=== PATIENT | male | born 1945 | race Caucasian/White ===

== ENCOUNTER 2018-02-20 16:37 | Inpatient (IN) | payer OTHER ==
[~2018-02-20] VITALS: Ht 170.2 cm; Wt 69.7 kg
[2018-02-20 17:13] LABS: ABSOLUTE BASOPHIL COUNT 0.1 /CUMM (0.0-0.2); ABSOLUTE EOSINOPHIL COUNT 0.1 /CUMM (0.0-0.7); ABSOLUTE GRANULOCYTE CT 11.2 /CUMM (1.4-6.5); ABSOLUTE LYMPH COUNT 0.8 /CUMM (1.2-3.4); ABSOLUTE MONOCYTE COUNT 0.7 /CUMM (0.10-0.60); BASOPHIL % 0.5 % (0.0-2.0); EOSINOPHIL % 0.5 % (0-5); GRANULOCYTE % 87.4 % (42.2-75.2); MEAN CORPUSCULAR HGB 27.2 PG (27.0-31.0); MEAN CORPUSCULAR HGB CONC 32.4 G/DL (33.0-37.0); MEAN PLATELET VOLUME 7.2 FL (7.4-10.4); PLATELET COUNT 318 /CUMM (130-400); RBC DISTRIBUTION WIDTH 17.2 % (11.5-14.5); RED BLOOD CELL CT 2.13 /CUMM (4.70-6.10); WHITE BLOOD CELL COUNT 12.8 /CUMM (4.8-10.8)
[2018-02-20 17:18] LABS: HEMATOCRIT 17.9 % (42-52)
--- NOTE | 2018-02-20 17:23 | ED GENERAL ADULT ---
History of Present Illness General Chief Complaint: Shoulder Injury Stated Complaint: PAIN IN LEFT SHOULDER Source: patient Exam Limitations: no limitations Allergies Coded Allergies: No Known Allergies (02/20/18) Reconcile Medications No Known Home Medications Triage Note: 72M REPORTS HE WAS HELPING A FRIEND OUT HEAVY LIFTING A FEW WEEKS AGO. HAS HAD INTERMITTENT WORSENING PAIN TO L SHOULDER, CLAVICAL AND RIB CAGE AREA. PAIN WORSE WITH MOVEMENT. MULTIPLE COMPLAINTS REGARDING DECREASING ACTIVITY LEVEL DUE TO PAIN ALL OVER CHRONIC. INTERMITTENT NAUSEA/POOR APPETITE AND DYSPHAGIA. MANAGING SECRETIONS. UNSURE IF BITTEN BY INSECT OR TICK. AFEBRILE. Triage Nurses Notes Reviewed? yes Onset: Gradual Duration: day(s): Timing: constant HPI: 72-year-old male with no known past medical history currently visiting from [place] presenting with 1 month of intermittent left shoulder pain that began after he was helping his friend take apart a deck. Pain is worse with movement. Has been using NSAIDs with good relief. Denies numbness or paresthesias. No chest pain or shortness of breath. (Verito Wright) Vital Signs & Intake/Output Vital Signs & Intake/Output Vital Signs Date Time Temp Pulse Resp B/P B/P Pulse O2 O2 Flow FiO2 Mean Ox Delivery Rate 02/20 2200 96.9 95 18 154/91 99 Room Air 02/20 2115 96.8 91 18 160/72 97 Room Air 02/20 2100 96.9 95 18 155/80 99 Room Air 02/20 2015 96.8 96 18 160/84 99 Room Air 02/20 2000 97.0 99 18 158/85 99 Room Air 02/20 1826 90 18 141/70 100 Room Air 02/20 1644 98.2 113 16 155/81 99 Room Air (Felix King DO) Past History Travel History Traveled to [place] past 21 day No Medical History Any Pertinent Medical History? none Neurological: NONE EENT: NONE Cardiovascular: NONE Respiratory: NONE Gastrointestinal: NONE Hepatic: NONE Renal: NONE Musculoskeletal: NONE Psychiatric: NONE Endocrine: NONE Surgical History Surgical History: non-contributory Psychosocial History What is your primary language British Tobacco Use: Never used Family History Hx Contributory? No (Verito Wright) Review of Systems Review of Systems Constitutional: Reports: no symptoms. EENTM: Reports: no symptoms. Respiratory: Reports: no symptoms. Cardiovascular: Reports: no symptoms. GI: Reports: no symptoms. Genitourinary: Reports: no symptoms. Musculoskeletal: Reports: see HPI. Skin: Reports: no symptoms. Neurological/Psychological: Reports: no symptoms. Hematologic/Endocrine: Reports: no symptoms. Immunologic/Allergic: Reports: no symptoms. (Verito Wright) Physical Exam Physical Exam General Appearance: well developed/nourished, no apparent distress, alert, awake , comfortable Head: atraumatic, normal appearance Eyes: Bilateral: normal appearance. Neck: normal inspection, full range of motion, no midline tenderness Respiratory: normal breath sounds, chest non-tender, lungs clear Cardiovascular: regular rate/rhythm Gastrointestinal: soft, non-tender, hepatomegaly Back: normal inspection, normal range of motion, no vertebral tenderness Extremities: normal inspection, normal range of motion, No focal tenderness to palpation of the left shoulder, mild decrease in range of motion at the left shoulder, left upper extremity is neurovascularly intact. Neurologic/Psych: awake, alert, oriented x 3, normal gait, normal mood/affect Skin: intact, normal color, warm/dry Core Measures ACS in differential dx? No CVA/TIA Diagnosis: No Sepsis Present: No Sepsis Focused Exam Completed? No (Verito Wright) Progress Differential Diagnoses I considered the following diagnoses in my evaluation of the patient: [MSK strain versus osteoarthritis versus fracture versus dislocation versus rotator cuff injury] Initial ED EKG: rhythm (sinus), rate (tachy to 102), no ST T wave changes (Verito Wright) Plan of Care: Orders Procedure Date/time Status Nothing by Mouth 02/21 B Active Heart Healthy Diet 02/20 D Complete Saline Lock 02/20 2226 Active Misc Message 02/20 2226 Active ED Holding Orders 02/20 2226 Active Admit to inpatient 02/20 222 Active Vital Signs 02/20 2226 Active Code Status 02/20 2226 Active BLOOD PRODUCT PICKUP 02/20 2055 Active BLOOD PRODUCT PICKUP 02/20 1951 Active LEUKOCYTE POOR (PACKED CELLS) 02/20 192 Active PARTIAL THROMBOPLASTIN TIME 02/20 1722 Complete PROTHROMBIN TIME 02/20 1722 Complete TYPE & SCREEN (NOT X-MATCH) 02/20 1722 Complete TROPONIN LEVEL 02/20 164 Complete WESTERGREN SED RATE 02/20 1647 Complete COMPREHENSIVE METABOLIC PANEL 02/20 164 Complete CBC WITHOUT DIFFERENTIAL 02/20 1647 Complete EKG 02/20 1647 Active Intake & Output 02/20 1646 Active Patient Data 02/20 1644 Active Current Medications Sig/Kayleen Start time Last Medication Dose Stop Time Status Admin Heparin Sodium 25,000 UNIT Q24H 02/20 2145 AC 02/20 (Porcine) 2214 (Heparin) Sodium Chloride 500 ML Laboratory Tests 02/20/18 2223: APTT Cancelled 02/20/18 1735: PT 13.5 H, INR 1.24 H, APTT 26 02/20/18 1700: Anion Gap 6, Estimated GFR 55 L, BUN/Creatinine Ratio 20.8, Glucose 114 H, Calcium 8.5, Total Bilirubin 0.2, AST 66 H, ALT 64, Alkaline Phosphatase 292 H , Troponin I 0.02, Total Protein 6.6, Albumin 3.2 L, Globulin 3.4, Albumin/ Globulin Ratio 0.9 L, CBC w Diff NO MAN DIFF REQ, RBC 2.13 L, MCV 84.0, MCH 27.2, MCHC 32.4 L, RDW 17.2 H, MPV 7.2 L, Gran % 87.4 H, Lymphocytes % 6.5 L, Monocytes % 5.1, Eosinophils % 0.5, Basophils % 0.5, Absolute Granulocytes 11.2 H, Absolute Lymphocytes 0.8 L, Absolute Monocytes 0.7 H, Absolute Eosinophils 0.1, Absolute Basophils 0.1, ESR Westergren 50 H EKG showed sinus tach, no ischemic changes, trop 0.02 Labs remarkable for H&H of 5 and 17, patient denies any sources of bleeding on his review of systems, his stool is brown guaiac-negative, no active signs of bleeding on exam. Patient was given 2 units of packed rbc's, and vital signs are within normal limits. CT abdomen and pelvis was obtained as the patient had a palpable mass in the right upper quadrant and his abdominal exam. CT abdomen and pelvis showed an enlarged liver with lesions suspicious for metastases. Patient's anemia is likely secondary to anemia of chronic disease from an undiagnosed malignancy. CT scan was also concerning for questionable right lower extremity thrombus. Bilateral duplex was obtained and patient has bilateral occlusive thrombus with right side worse than left side. Given the patient has no active bleeding and his anemia is likely secondary to anemia of chronic disease he is safe for heparinization at this time. Discussed with vascular and there is no indication for TPA at this time as the patient's legs are nonedematous, nonerythematous, and patient has no lower extremity pain. Discussed with hospitalist and will admit to telemetry. Discussed with POPPY Licona. (Verito Wright) (Felix King DO) Departure Departure Disposition: STILL A PATIENT Condition: Stable Clinical Impression Primary Impression: Anemia Secondary Impressions: DVT, bilateral lower limbs, Liver metastases Departure Forms: Customer Survey General Discharge Information Prescriptions: Current Visit Scripts No Known Home Medications Admission Note Spoke With: Migdalia Burks MD Documentation of Exam: Documentation of any treatments & extenuating circumstances including Concerns Regarding Discharge (functional status, medication knowledge or non-compliance, living conditions, etc.) that warrant an admission rather than observation: [ Hemodynamic monitoring, serial CBCs, possible additional blood transfusions, IV heparinization, vascular consult, telemetry monitoring, oncology consult] (Verito Wright) PA/EMAIL ENGINEER Co-Sign Statement Statement: ED Attending supervision documentation- [] I saw and evaluated the patient. I have also reviewed all the pertinent lab results and diagnostic results. I agree with the findings and the plan of care as documented in the PA's/EMAIL ENGINEER's documentation. [x] I have reviewed the ED Record and agree with the PA's/EMAIL ENGINEER's documentation. [] Additions or exceptions (if any) to the PAs/EMAIL ENGINEER's note and plan are summarized below: [] (Felix King DO) PA/EMAIL ENGINEER Co-Sign Statement Statement: ED Attending supervision documentation- [x] I saw and evaluated the patient. I have also reviewed all the pertinent lab results and diagnostic results. I agree with the findings and the plan of care as documented in the PA's/EMAIL ENGINEER's documentation. 02/20/18, 22:34... pt resting comfortably, stable for tele. [] I have reviewed the ED Record and agree with the PA's/EMAIL ENGINEER's documentation. [] Additions or exceptions (if any) to the PAs/EMAIL ENGINEER's note and plan are summarized below: [] (Ciara ADAMS,Fede Collins) Critical Care Note Critical Care Note Critical Care Time: 30-74 min (Verito Wright)
--- NOTE | 2018-02-20 17:33 | RADIOLOGY REPORT ---
EXAMINATION: XR SHOULDER, LEFT CLINICAL INFORMATION: Left shoulder pain, chest discomfort at times. COMPARISON: None TECHNIQUE: AP external rotation, Grashey, and scapular Y views of the left shoulder. FINDINGS: There is no fracture or malalignment. The glenohumeral joint is unremarkable. There are mild degenerative changes of the acromioclavicular joint. IMPRESSION: Mild degenerative changes of the acromioclavicular joint.
--- NOTE | 2018-02-20 17:33 | RADIOLOGY REPORT ---
EXAMINATION: XR CHEST CLINICAL INFORMATION: Shoulder pain. Chest discomfort. COMPARISON: None TECHNIQUE: 2 views of the chest were obtained. FINDINGS: Lungs are clear. No pulmonary vascular congestion. There is no pleural effusion. The heart size is normal. The cardiac and mediastinal contours are normal. There are multilevel degenerative changes of dorsal spine. IMPRESSION: Unremarkable examination.
[2018-02-20 17:56] LABS: PT 13.5 SEC (9.4-12.5); PTT 26 SEC (25-37)
--- NOTE | 2018-02-20 19:37 | CT SCAN REPORT ---
EXAMINATION: CT ABDOMEN AND PELVIS WITH CONTRAST CLINICAL INFORMATION: Fullness to right upper quadrant. Presumptive diagnosis: Mass. COMPARISON: None TECHNIQUE: Multidetector volumetric imaging was performed of the abdomen and pelvis following IV administration of 95 mL of Optiray 320 intravenous contrast. Sagittal and coronal reformatted images were obtained on the technologist's workstation. DLP: 295.76 mGy-cm FINDINGS: LUNG BASES: The visualized lung bases are unremarkable. LIVER, GALLBLADDER, AND BILIARY TREE: The liver is enlarged with numerous slightly hypodense lesions throughout the liver suspicious for metastatic disease. The largest of these is in the right lobe measuring approximally 4.7 cm in diameter. There is no biliary duct dilatation. The gallbladder is contracted and otherwise unremarkable. PANCREAS: Unremarkable. SPLEEN: Unremarkable. ADRENAL GLANDS: Unremarkable. KIDNEYS AND URETERS: The kidneys are normal in size, shape, and attenuation. No hydronephrosis, hydroureter, or calculi seen. No perinephric stranding. BLADDER: Unremarkable. GASTROINTESTINAL TRACT: There is a moderate-sized hiatal hernia. There appears to be asymmetric wall thickening in the right side of the herniated stomach and/or the distal esophagus. The colon and appendix are unremarkable. There is a loop of nonobstructed small bowel extending into a right inguinal hernia which also contains some fat. ABDOMINAL WALL: Right inguinal hernia containing a loop of nonobstructed small bowel. There is a small fat-containing umbilical hernia. LYMPH NODES: Normal. VASCULAR: The right common femoral vein is distended with central low attenuation suspicious for deep vein thrombosis. PELVIC VISCERA: Unremarkable. OSSEOUS STRUCTURES: There is a mild right convex lumbar scoliosis and mild multilevel degenerative disc disease. There are mild degenerative changes in both hips. There are no suspicious bone lesions. IMPRESSION: 1. Enlarged liver with numerous lesions suspicious for metastatic disease. 2. Moderate size hiatal hernia with asymmetric wall thickening in the herniated stomach and/or distal esophagus. Neoplasm in this region is not definite but certainly should be considered. 3.Suspected deep vein thrombosis in right common femoral vein. Recommend Doppler ultrasound. 4. Right inguinal hernia containing a loop of nonobstructed small bowel. This Critical Result was discussed with SAUD Lowe on 02/20/2018 at 1846 hours
--- NOTE | 2018-02-20 21:02 | ULTRASOUND REPORT ---
EXAMINATION: US TRIPLEX OF LOWER EXTREMITIES, BILATERAL CLINICAL INFORMATION: Thrombus seen on CT study in the deep veins. COMPARISON: None TECHNIQUE: Color-flow triplex imaging with spectral analysis and compression Doppler were performed on the lower extremities. FINDINGS: Right lower extremity. There is occlusive thrombus from the right common femoral vein to the popliteal.. On the right side the femoral vein is duplicated. One vein is entirely occluded. The other vein though remains patent. Thrombus does extend into the proximal portion of the deep femoral vein. The greater saphenous vein though is open. Left lower extremity: There is thrombus present in the left popliteal vein. This is occlusive thrombus. The proximal veins are open. The calf veins are not well seen on the left. IMPRESSION: 1. Right lower extremity: Occlusive thrombus from the groin through the popliteal vein. 2. Left lower extremity: Occlusive thrombus in the popliteal vein. This critical result was discussed with Verito Don on 02/20/2018, 8:55 PM and it was ascertained that the content and urgency of the report was understood at the time of direct communication.
--- NOTE | 2018-02-20 21:55 | History & Physical ---
Dion ADAMS,[facility] 02/20/18 6221: General Information and HPI MD Statement: I have seen and personally examined MANINDER GRIFFIN and documented this H&P. The patient is a 72 year old M who presented with a patient stated chief complaint of [left shoulder pain]. Source of Information: patient History of Present Illness: 72-year-old male with no significant past history presenting for left shoulder pain found to have possible primary/secondary to liver metastases and bilateral popliteal DVT. The patient states that he has not seen a PCP since his childhood and has not had any significant medical issues. He does not take any medications. States that he used to live in [place] and moved down to [place] in 2014. States that when he moved and changed insurances he had blood work done in EKG which were apparently normal. The patient states that he drove up from [place] in 2 days with a stop in [place]. The patient states that his symptoms started about a month ago when he helped with a deck at a friend's house. The patient states that he started having left shoulder pain afterwards which has been intermittently persistent. The patient states that he does not have any pain when he is not moving the shoulder but states he does have pain when he tries to move. The patient states that it is a deep muscular pain. Around the same time the patient started having dysphagia notably with solid food such as steak. The patient states that he will compensate into small pieces and has been eating ground/pured solids without any issues. He has not had any dysphagia to liquids. The patient also states that he has noticed right upper quadrant abdominal pain when he lies on his right side. He states that he noticed the pain when he was sleeping on his stomach. He states that the pain does not bother him if there is any pressure on it. The patient states that he thought he might have been a rib strain from whipping the deck. Also within this time. The patient started noticing that his legs started to hurt particularly in the area just above his ankles. The patient used to walk 3 miles a day but has not been exercising for the past month but states that he is still active with his daily activities without any issues. The patient has also noticed decreased appetite with this timeframe. He also states he gets intermittent lightheadedness. He denies any nausea, vomiting, diarrhea, constipation, changes in stool, any other trauma, shortness of breath, chest pain, palpitations, changes in urination, numbness, or other weakness. Allergies/Medications Allergies: Coded Allergies: No Known Allergies (02/20/18) Home Med list No Known Home Medications Past History Travel History Traveled to [place] past 21 day No Medical History Neurological: NONE EENT: NONE Cardiovascular: NONE Respiratory: NONE Gastrointestinal: NONE Hepatic: NONE Renal: NONE Musculoskeletal: NONE Psychiatric: NONE Endocrine: NONE Surgical History Surgical History: none Review of Systems Review of Systems Constitutional: Reports: see HPI. Denies: chills, diaphoresis, fever, malaise, weakness. Cardiovascular: Denies: chest pain, edema, palpitations, syncope. Respiratory: Denies: cough, hemoptysis, orthopnea, short of breath. GI: Reports: see HPI. Denies: abdominal pain, constipation, diarrhea, melena, nausea. Genitourinary: Reports: no symptoms. Musculoskeletal: Reports: see HPI, joint pain, muscle pain. Skin: Reports: no symptoms. Neurological/Psychological: Reports: see HPI. Exam & Diagnostic Data Last 24 Hrs of Vital Signs/I&O Vital Signs Date Time Temp Pulse Resp B/P B/P Pulse O2 O2 Flow FiO2 Mean Ox Delivery Rate 02/20 2200 96.9 95 18 154/91 99 Room Air 02/20 2115 96.8 91 18 160/72 97 Room Air 02/20 2100 96.9 95 18 155/80 99 Room Air 02/20 2015 96.8 96 18 160/84 99 Room Air 02/20 2000 97.0 99 18 158/85 99 Room Air 02/20 1826 90 18 141/70 100 Room Air 02/20 1644 98.2 113 16 155/81 99 Room Air Intake & Output 02/21 0800 02/21 0000 02/20 1600 Intake Total Output Total Balance Patient 150 lb Weight Physical Exam General Appearance Alert, Oriented X3, Cooperative, No Acute Distress HEENT Atraumatic, PERRLA, EOMI, no lymphadenopathy Cardiovascular mild tachy Lungs Clear to Auscultation, Normal Air Movement Abdomen Soft, No Tenderness, hepatomegaly Neurological Normal Speech, Cranial Nerves 3-12 NL, Reflexes 2+, limit ROM of L shoulder. distal strength 5/5 of all extremities. Extremities 1+ LE Last 24 Hrs of Labs/Jam: Laboratory Tests 02/20/18 2223: APTT Cancelled 02/20/18 1735: PT 13.5 H, INR 1.24 H, APTT 26 02/20/18 1700: Anion Gap 6, Estimated GFR 55 L, BUN/Creatinine Ratio 20.8, Glucose 114 H, Calcium 8.5, Total Bilirubin 0.2, AST 66 H, ALT 64, Alkaline Phosphatase 292 H , Troponin I 0.02, Xwj-P-Wbwarhurufq Pept 336 H, Total Protein 6.6, Albumin 3.2 L, Globulin 3.4, Albumin/Globulin Ratio 0.9 L, CBC w Diff NO MAN DIFF REQ, RBC 2.13 L, MCV 84.0, MCH 27.2, MCHC 32.4 L, RDW 17.2 H, MPV 7.2 L, Gran % 87.4 H, Lymphocytes % 6.5 L, Monocytes % 5.1, Eosinophils % 0.5, Basophils % 0.5, Absolute Granulocytes 11.2 H, Absolute Lymphocytes 0.8 L, Absolute Monocytes 0.7 H, Absolute Eosinophils 0.1, Absolute Basophils 0.1, ESR Westergren 50 H Assessment/Plan Assessment: A: 72-year-old male with no significant past history presenting for left shoulder pain found to have possible primary/secondary to liver metastases and bilateral popliteal DVT. P: #bilateral DVT most likely 2/2 to coagulopathy from cancer Doppler US : 1. Right lower extremity: Occlusive thrombus from the groin through the popliteal vein. 2. Left lower extremity: Occlusive thrombus in the popliteal vein. -cont heparin drip -consider CTA for possible PE given tachycardia #liver mets with esophogeal as possible primary source ESR, INR, WBC, AST, ALP elevated possible secondary to cancer Radiology unsure where primary source of liver mets is. Possible esophogeal per radiologist. -GI consult for possible endoscopy #anemia of unknow origin. Negative guaiac Never had colonoscopy H/H 5.8/17.9 Transfused 2 units -f/u AM h/h #left shoulder pain L shoulder XRAY - Mild degenerative changes of the acromioclavicular joint. -consider MRI for rotator cuff injury #CKD Cr 1.3 -cont monitoring #DNR DNI #Pureed and thin liquid diet #DVT ppx - heparin drip As Ranked By This Provider Problem List: 1. DVT, bilateral lower limbs 2. Liver metastases 3. Anemia 4. Shoulder pain, left 5. CKD (chronic kidney disease) Core Measures/Misc (05/11) Acute Coronary Syndrome ACS Diagnosis: No Congestive Heart Failure Congestive Heart Failure Diagnosis No Cerebrovascular Accident CVA/TIA Diagnosis: No VTE (View Protocol) VTE Risk Factors Acute Medical Illness No Mechanical VTE Prophylaxis d/t Other (b/l DVT) No VTE Pharm Prophylaxis d/t Other (heparin drip) Sepsis (View protocol) Sepsis Present: No If YES complete Sepsis Event Note If YES complete Sepsis Event Note Quique ADAMS,[facility] 02/21/18 0032: Core Measures/Misc (05/11) Sepsis (View protocol) If YES complete Sepsis Event Note If YES complete Sepsis Event Note Resident Review Statement Resident Statement: examined this patient, discussed with advertising intern, agreed with advertising intern, discussed with nursing Other Findings: Maninder is 72-year-old gentleman with no significant past medical history who presented to ED with chief complaint of left shoulder pain for a month. Patient reported heavy physical work a month ago when he was helping a friend to fix a deck and he started to have left shoulder pain. Pain is on and off, exacerbated by movement, he is tried hot and cold therapy and ibuprofen with no significant improvement. Patient also reported a month history of loose appetite, stopped exercising because of the pain with 6 pounds weight loss that he thinks about it as decreased muscle tone. He also reported a month history of dysphagia to solids, denied any liquid dysphagia or odynophagia, not progressing. Denied any nausea, vomiting, abdominal pain, diarrhea or constipation, change in the caliber of stool blood in stool, hemoptysis or hematemesis. Patient reported accidental finding of abdominal pain when he sleep on his abdomen, denied any abdominal pain otherwise. Patient has no significant past medical history, did not see a PCP in long time, last physical was 2014 for insurance purposes when he moved from [place] to [place]. Patient came from [place] yesterday for a visit, drove on 2 days. Negative family history for cancer. Patient vital signs positive for mild sinus tachycardia and hypertension 155/81, saturating 99% on room air. Physical exam as above Problem list #Acute anemia #Right deep femoral vein thrombosis #Left popliteal vein thrombosis #A symmetric wall thickening of the right side distal esophagus questionable for malignancy #Enlarged liver with no persistent lesion suspicious for metastatic disease #Elevated alkaline phosphatase with normal bilirubin level #Right inguinal hernia #ANGELA #Left shoulder pain with negative x-ray #Hypertension Plan Admit to telemetry floor Vitals every shift Continue heparin IV Guaiac all stool CTA chest to rule out PE in setting of persistent tachycardia and bilateral proximal DVT however because of recent contrast according to CT protocol next contrast study should be within 24 hours Obtain tropes Obtain proBNP Keep n.p.o. after midnight for EGD GI consultation in a.m. Repeat CBC status post 2 units blood transfusion Repeat BEP, LFT in a.m. Out of bed Pain management DVT prophylaxis heparin IV Code DNR/DNI, power of personal injury attorney sister in-Migdalia Karimi 02/21/18 0052: Core Measures/Misc (05/11) Sepsis (View protocol) If YES complete Sepsis Event Note If YES complete Sepsis Event Note Attending MD Review Statement Attending Statement Attending MD Statement: examined this patient, discuss w/resident/PA/LEARNING SUPPORT AIDE, agreed w/resident/PA/LEARNING SUPPORT AIDE, reviewed EMR data (avail), reviewed images, amended to note Attending Assessment/Plan: CC: Left shoulder pain PMH: None Patient drove from [place] approximately 2 days back to spend one month with his brother and [id number], (with one break). Patient had been suffering from left shoulder pain since last 1 month on and off, not responding to heart or cold compresses, [id number] medications. It was getting more painful with movement. Now after the drive he was more uncomfortable so he decided to come in ER. Patient states that he started to notice this left shoulder pain one month back when he was working on a deck repairing for his friend, the pain is more with movement especially when he moves his arm higher than horizontal line. Patient denies any chest pain or chest tightness. After further probing patient mentioned that he used to be very active person, started to be very cautious about his health and in 90s and has been routinely exercising since then. He did not see any physician in long while but since one month he could not do pulling exercises because of the shoulder pain and he has lower extremity swelling so his walking also reduced, he lost weight and considers that because of the muscle wasting because of loss of exercise. He also occasionally feels lightheaded and 1 afternoon and patient was lying on the bed and rolled over he noticed some pain and lump in his right side of the abdomen but he did not do anything about that. He also has been noticing difficulty swallowing since last 1 month, more so for big chunks of food. He has been cutting chopping foot very fine to swallow. Denies any nausea, vomiting, bloody stool, black-colored stool. Vitals: Temperature 98.2, pulse 113, RR 16, blood pressure 155/81, saturating 99 % on room air. On exam: A O 3, cooperative, no acute distress, neck supple, ? JVD elevation, no lymphadenopathy, mucosa moist, no focal neurological deficit, +2 pedal edema, no obvious skin rashes or inflammation CVS: S1-S2, RRR. RS: Clear to auscultate bilaterally. Abdomen: Soft, enlarged liver, 2-3 cm below costal line, no guarding or rigidity, bowel sounds present. Left shoulder movement is restricted about 90 secondary to pain, point tenderness over acromioclavicular joint CXR: Unremarkable examination. Left shoulder x-ray Mild degenerative changes of the acromioclavicular joint. CT abdomen pelvis with IV contrast: 1. Enlarged liver with numerous lesions suspicious for metastatic disease. 2. Moderate size hiatal hernia with asymmetric wall thickening in the herniated stomach and/or distal esophagus. Neoplasm in this region is not definite but certainly should be considered. 3.Suspected deep vein thrombosis in right common femoral vein. Recommend Doppler ultrasound. 4. Right inguinal hernia containing a loop of nonobstructed small bowel. DVT Doppler bilateral lower extremity: 1. Right lower extremity: Occlusive thrombus from the groin through the popliteal vein. 2. Left lower extremity: Occlusive thrombus in the popliteal vein. Assessment and plan 72-year-old male who has not seen a physician in a long time presented in ER for left shoulder pain. He has been noticing that pain since last 1 month, more so with movements, started when he was helping his friend to repair his deck. On examination in ER he was found to have a lump or hepatomegaly so CT abdomen and pelvis was obtained which showed suspicion of an enlarged liver with numerous suspicious metastatic disease, possibility of DVT and thickening of esophageal wall. DVT was confirmed by Doppler which shows occlusive thrombus bilaterally. Vascular surgery was consulted for possible TPA given the extent of thrombus who suggested conservative management. Patient was started on heparin. He has low hemoglobin, 5.8, baseline not known. Probably chronic small blood loss versus anemia of chronic disease. Guaiac was negative. We had extensive discussion with patient regarding plan. He wants to go back to [place] for further treatment. He is agreeable for initial investigations here. His brother stays in [place] and he was visiting his brother for 1 month vacation. He has God- children in [place]. Other than this he does not have any immediate family. Patient is DNR/DNI. He may think of chemotherapy later on according to the chances. Patient is also mildly hypertensive at this point but we would not initiate treatment as this could be stress induced. Patient received 2 units PRBC in ER. + Bilateral occlusive DVT, right femoral through popliteal vein, left popliteal vein + Suspected metastatic lesions in liver + Anemia + Left shoulder pain - Admit to telemetry - Continuous telemetry monitoring - Continue heparin drip - Obtain troponin and proBNP - CTA chest - Vascular consult - Nothing by mouth after midnight - Tavares thickened diet - Gastroenterologic consult in a.m. - Iron studies, ferritin, TIBC, reticulocyte count - 2-D echo in a.m. - Repeat H&H in a.m.
[2018-02-21 00:34] VITALS: BP 156/94
--- NOTE | 2018-02-21 00:54 | Admission Certification ---
Admission Certification Certification Statement - As attending physician, I certify that at the time of - admission, based on clinical presentation, severity of - symptoms, need for further diagnostic testing and - therapeutic interventions, and risk of adverse outcomes - without in-hospital treatment, in my clinical assessment, - this patient requires an acute hospital stay for a minimum - of two nights or longer. I have also considered psychsocial - factors such as support system, advanced age, financial - issues, cognitive issues, and failed out-patient treatments, - past re-admission history, safety of patient, and lack of - compliance as applicable. Specific rationale supporting this admission is: A lateral occlusive DVT, anemia, suspected metastatic cancer
[2018-02-21 05:00] LABS: ABSOLUTE BASOPHIL COUNT 0.1 /CUMM (0.0-0.2); ABSOLUTE EOSINOPHIL COUNT 0.1 /CUMM (0.0-0.7)
[2018-02-21 05:11] LABS: ABSOLUTE GRANULOCYTE CT 9.3 /CUMM (1.4-6.5); ABSOLUTE LYMPH COUNT 1.1 /CUMM (1.2-3.4); ABSOLUTE MONOCYTE COUNT 0.7 /CUMM (0.10-0.60); BASOPHIL % 0.7 % (0.0-2.0); EOSINOPHIL % 0.7 % (0-5); GRANULOCYTE % 82.5 % (42.2-75.2); MEAN CORPUSCULAR HGB 28.2 PG (27.0-31.0); MEAN CORPUSCULAR HGB CONC 33.3 G/DL (33.0-37.0); MEAN CORPUSCULAR VOLUME 84.7 FL (80.0-94.0); MEAN PLATELET VOLUME 8.3 FL (7.4-10.4); PLATELET COUNT 281 /CUMM (130-400); RBC DISTRIBUTION WIDTH 16.2 % (11.5-14.5); RED BLOOD CELL CT 2.42 /CUMM (4.70-6.10); WHITE BLOOD CELL COUNT 11.3 /CUMM (4.8-10.8)
[2018-02-21 05:15] LABS: PTT 53 SEC (25-37)
[2018-02-21 05:29] LABS: HEMATOCRIT 20.5 % (42-52)
[2018-02-21 06:00] VITALS: BP 144/78
--- NOTE | 2018-02-21 09:08 | PN- Housestaff ---
Cornelia ADAMS,Melvin 02/21/18 0908: Subjective Follow-up For: anemia bilateral LE occlusive DVT probable esophageal cancer Subjective: patient is complaining of left shoulder pain and mild bilateral ankle pain and swelling extensive discussion about plan of care, GI consult, EGD biopsy, likely malignancy, DVT/IVC filter patient states he is hungry and wants to eat, diet order currently explained to him pending GI/EGD Review of Systems Constitutional: Reports: see HPI. Objective Last 24 Hrs of Vital Signs/I&O Vital Signs Date Time Temp Pulse Resp B/P B/P Pulse O2 O2 Flow FiO2 Mean Ox Delivery Rate 02/21 06 98.3 90 18 144/78 98 Room Air 02/21 0034 98.6 96 18 156/94 98 Room Air 02/20 2200 96.9 95 18 154/91 99 Room Air 02/20 2115 96.8 91 18 160/72 97 Room Air 02/20 2100 96.9 95 18 155/80 99 Room Air 02/20 2015 96.8 96 18 160/84 99 Room Air 02/20 2000 97.0 99 18 158/85 99 Room Air 02/20 1826 90 18 141/70 100 Room Air 02/20 1644 98.2 113 16 155/81 99 Room Air Intake & Output 02/21 1600 02/21 0800 02/21 0000 Intake Total 212 Output Total 400 Balance -188 Intake, IV 192 Intake, Oral 20 Number 0 Bowel Movements Output, Urine 400 Patient 70.931 kg 68.039 kg Weight Weight Bed scale Measurement Method Physical Exam General Appearance: Alert, Oriented X3, Cooperative, No Acute Distress Cardiovascular: Regular Rate, Normal S1, Normal S2, No Murmurs Lungs: Clear to Auscultation, Normal Air Movement Abdomen: Normal Bowel Sounds, Soft, No Tenderness, No Masses Extremities: No Clubbing, No Cyanosis, Normal Pulses, trace b/l LE edema Current Medications: Current Medications Sig/Kayleen Start time Last Medication Dose Route Stop Time Status Admin Acetaminophen 325 MG Q6P PRN 02/20 2330 AC PO Heparin Sodium 2,800 UNIT ONE ONE 02/21 0530 DC (Porcine) IV 02/21 0531 Heparin Sodium 0 .STK-MED ONE 02/20 2155 DC (Porcine) .ROUTE Heparin Sodium 0 .STK-MED ONE 02/20 2155 DC (Porcine) .ROUTE Heparin Sodium 5,000 UNIT ONCE ONE 02/205 DC 02/20 (Porcine) IV 02/20 2146 221 Heparin Sodium 25,000 UNIT Q24H 02/20 2145 AC 02/20 (Porcine) IV 2213 Sodium Chloride 500 ML Ibuprofen 400 MG Q6P PRN 02/20 2330 DC PO Lidocaine 1 PAT ONCE ONE 02/20 1800 DC 02/20 TOP 02/20 1801 1825 Morphine Sulfate 2 MG Q6-PRN PRN 02/20 2345 AC IV Morphine Sulfate 0 .STK-MED ONE 02/20 1815 DC .ROUTE Morphine Sulfate 2 MG ONCE ONE 02/20 1800 DC 02/20 IV 02/20 1801 1825 Ramelteon 8 MG ONCE ONE 02/21 0415 DC 02/21 PO 02/22 416 0428 Last 24 Hrs of Lab/Jam Results Last 24 Hrs of Labs/Mics: Laboratory Tests 02/21/18 0405: Anion Gap 3 L, Estimated GFR > 60, BUN/Creatinine Ratio 21.0, Total Bilirubin 0.9, Direct Bilirubin 0, AST 56, ALT 60, Alkaline Phosphatase 285 H, Total Protein 6.0 L, Albumin 2.8 L, APTT 53 H, CBC w Diff NO MAN DIFF REQ, RBC 2.42 L, MCV 84.7, MCH 28.2, MCHC 33.3, RDW 16.2 H, MPV 8.3, Gran % 82.5 H, Lymphocytes % 9.6 L, Monocytes % 6.5, Eosinophils % 0.7, Basophils % 0.7, Absolute Granulocytes 9.3 H, Absolute Lymphocytes 1.1 L, Absolute Monocytes 0.7 H, Absolute Eosinophils 0.1, Absolute Basophils 0.1, Retic Count 3.05 H 02/20/18 2223: APTT Cancelled 02/20/18 1735: PT 13.5 H, INR 1.24 H, APTT 26 02/20/18 1700: Anion Gap 6, Estimated GFR 55 L, BUN/Creatinine Ratio 20.8, Glucose 114 H, Calcium 8.5, Iron 30 L, TIBC 359, Ferritin 24.5, Total Bilirubin 0.2, AST 66 H , ALT 64, Alkaline Phosphatase 292 H, Troponin I 0.02, Ppz-V-Gcjfvumfjvg Pept 336 H, Total Protein 6.6, Albumin 3.2 L, Globulin 3.4, Albumin/Globulin Ratio 0.9 L, Vitamin B12 964 H, Folate > 20.0 H, CBC w Diff NO MAN DIFF REQ, RBC 2.13 L, MCV 84.0, MCH 27.2, MCHC 32.4 L, RDW 17.2 H, MPV 7.2 L, Gran % 87.4 H, Lymphocytes % 6.5 L, Monocytes % 5.1, Eosinophils % 0.5, Basophils % 0.5, Absolute Granulocytes 11.2 H, Absolute Lymphocytes 0.8 L, Absolute Monocytes 0.7 H, Absolute Eosinophils 0.1, Absolute Basophils 0.1, ESR Westergren 50 H Assessment/Plan Assessment: 72 year old male with no significant past medical history presented with left shoulder pain, dysphagia and bilateral ankle pain for the past month was admitted to telemetry with anemia with hemoglobin 5.3, bilateral DVT, and esophageal and liver lesions on CT. 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 Right lower extremity: Occlusive thrombus from the groin through the popliteal vein. 2. Left lower extremity: Occlusive thrombus in the popliteal vein. CT abdomen pelvis with IV contrast 1. Enlarged liver with numerous lesions suspicious for metastatic disease. 2. Moderate size hiatal hernia with asymmetric wall thickening in the herniated stomach and/or distal esophagus. Neoplasm in this region is not definite but certainly should be considered Likely from malignancy with CT findings and dysphagia, awaiting GI consultation Currently on heparin gtt, titrate to goal PTT Chest CTA for PE cancelled, will not changed management, received contrast yesterday Vascular surgery consulted for IVC filter placement Will need lovenox fci lovenox Left shoulder pain: negative x-ray ANGELA: Creatinine elevated to 1.3 on admission Improved to 1.0 after transfusion Hypertension: SBP 140s-150s Not on any medications Clear liquid diet currently, may change depending on GI intervention planning DVT ppx-on heparin gtt DNR/DNI Problem List: 1. Anemia 2. DVT, bilateral lower limbs 3. Liver metastases 4. Shoulder pain, left Pain Ratin Pain Location: left shoulder ankles Pain Goal: Pain 4 or less Pain Plan: morphine Tomorrow's Labs & Rationales: cbc, ptt, bep Ella Wise MD 02/21/18 0953: Attending MD Review Statement Attending Statement Attending MD Statement: examined this patient, discuss w/resident/PA/FEED WEIGHER, reviewed EMR data (avail), discussed with nursing, reviewed images Attending Assessment/Plan: 72-year-old male no significant past medical history hasn't seen the PCP for many years. He used to live in [place], moved to [place] and his right now here with visiting his brother. He came in for what he thought was deep shoulder musculoskeletal pain and as part of the workup in the emergency room he is found to have multiple liver lesions suspicious of a metastases with a possible primary being in the esophagus given the thickening in the esophageal area seen on CT. In addition he was found to have profound anemia with a hemoglobin of 5, guaiac positive stool again pointing out to a likely GI malignancy with metastases in the liver. He also has bilateral DVT occlusive thrombus extending into the popliteal vein. Patient is aware but overwhelmed by all of the current diagnosis. He is clear that he wants to be DNR/DNI. He wants the workup started but he'll continue his treatment once he stabilizes, back in [place]. At this point he's gotten 2 units of blood and he is on his third unit and will follow his crit closely. He was kept nothing by mouth overnight, I'll start clears and have GI see him. Ideally we would get an endoscopy in the next 24-48 hours for a tissue diagnosis. Vascular surgery has been called as he'll likely need a filter given the anemia, bleeding issues and the need for procedure. We will follow his crit closely. I don't think he needs a CTA to rule out a PE because at this point it won't change our management and he still needs the anticoagulation for now.
--- NOTE | 2018-02-21 10:12 | Cons- Vascular Surgery ---
See Addendum General Information and HPI Consulting Request Date of Consult: 02/21/18 Requested By: Migdalia Burks MD Reason for Consult: DVT B/L Source of Information: patient, old records Exam Limitations: no limitations History of Present Illness: This is a 72-year-old male who was in his usual state of health until a recent visit here to [place]. He injured his shoulder several weeks ago working in [place]. He has felt some general malaise and discomfort since that time. This included lower extremity abdominal pain. He presented to the emergency room and a CAT scan demonstrated a possible esophageal mass with metastatic disease to the liver. He also had a inguinal hernia and incidentally noted was a bilateral lower extremity DVT. This was confirmed with ultrasound. This demonstrates occlusive DVT from the right common femoral vein and a left- sided popliteal DVT. He denies claudication or rest pain. He denies significant lower extremity discomfort. Allergies/Medications Allergies: Coded Allergies: No Known Allergies (02/20/18) Home Med List: No Known Home Medications Past History Medical History Blood Transfusion Hx: Yes Neurological: NONE EENT: NONE Cardiovascular: NONE Respiratory: NONE Gastrointestinal: NONE Hepatic: NONE Renal: NONE Musculoskeletal: NONE Psychiatric: NONE Endocrine: NONE Surgical History Pertinent Surgical History: 1 Psychosocial History Where Do You Live? Home Services at Home: None Smoking Status: Former Smoker Review of Systems Review of Systems: Noncontributory Review of Systems Constitutional: Reports: no symptoms, see HPI. Exam & Diagnostic Data Vital Signs and I&O Vital Signs Date Time Temp Pulse Resp B/P B/P Pulse O2 O2 Flow FiO2 Mean Ox Delivery Rate 02/21 600 98.3 90 18 144/78 98 Room Air 02/21 0034 98.6 96 18 156/94 98 Room Air 02/20 2200 96.9 95 18 154/91 99 Room Air 02/205 96.8 91 18 160/72 97 Room Air 02/20 2100 96.9 95 18 155/80 99 Room Air 02/20 2015 96.8 96 18 160/84 99 Room Air 02/20 2000 97.0 99 18 158/85 99 Room Air 02/20 1826 90 18 141/70 100 Room Air 02/20 1644 98.2 113 16 155/81 99 Room Air Intake & Output 02/21 1600 02/21 0800 02/21 0000 02/20 1600 02/20 0800 02/20 0000 Intake Total 212 Output Total 400 Balance -188 Intake, IV 192 Intake, Oral 20 Number 0 Bowel Movements Output, Urine 400 Patient 156 lb 150 lb Weight Weight Bed scale Measurement Method Last 24 Hours of Labs: Laboratory Tests 02/21 02/20 02/20 0405 2223 1735 Chemistry Sodium (137 - 145 mmol/L) 138 Potassium (3.5 - 5.1 mmol/L) 4.6 Chloride (98 - 107 mmol/L) 104 Carbon Dioxide (22 - 30 mmol/L) 30 Anion Gap (5 - 16) 3 L BUN (9 - 20 mg/dL) 21 H Creatinine (0.7 - 1.2 mg/dL) 1.0 Estimated GFR (>60 ml/min) > 60 BUN/Creatinine Ratio (7 - 25 %) 21.0 Total Bilirubin (0.2 - 1.3 mg/dL) 0.9 Direct Bilirubin (< 0.4 mg/dL) 0 AST (17 - 59 U/L) 56 ALT (21 - 72 U/L) 60 Alkaline Phosphatase (< 127 U/L) 285 H Total Protein (6.3 - 8.2 g/dL) 6.0 L Albumin (3.5 - 5.0 g/dL) 2.8 L Coagulation PT (9.4 - 12.5 SEC) 13.5 H INR (0.90 - 1.17) 1.24 H APTT (25 - 37 SEC) 53 H Cancelled 26 Hematology CBC w Diff NO MAN DIFF REQ WBC (4.8 - 10.8 /CUMM) 11.3 H RBC (4.70 - 6.10 /CUMM) 2.42 L Hgb (14.0 - 18.0 G/DL) 6.8 *L Hct (42 - 52 %) 20.5 L MCV (80.0 - 94.0 FL) 84.7 MCH (27.0 - 31.0 PG) 28.2 MCHC (33.0 - 37.0 G/DL) 33.3 RDW (11.5 - 14.5 %) 16.2 H Plt Count (130 - 400 /CUMM) 281 MPV (7.4 - 10.4 FL) 8.3 Gran % (42.2 - 75.2 %) 82.5 H Lymphocytes % (20.5 - 51.1 %) 9.6 L Monocytes % (1.7 - 9.3 %) 6.5 Eosinophils % (0 - 5 %) 0.7 Basophils % (0.0 - 2.0 %) 0.7 Absolute Granulocytes (1.4 - 6.5 /CUMM) 9.3 H Absolute Lymphocytes (1.2 - 3.4 /CUMM) 1.1 L Absolute Monocytes (0.10 - 0.60 /CUMM) 0.7 H Absolute Eosinophils (0.0 - 0.7 /CUMM) 0.1 Absolute Basophils (0.0 - 0.2 /CUMM) 0.1 Retic Count (0.5 - 2.0 %) 3.05 H 02/20 1700 Chemistry Sodium (137 - 145 mmol/L) 141 Potassium (3.5 - 5.1 mmol/L) 4.9 Chloride (98 - 107 mmol/L) 105 Carbon Dioxide (22 - 30 mmol/L) 30 Anion Gap (5 - 16) 6 BUN (9 - 20 mg/dL) 27 H Creatinine (0.7 - 1.2 mg/dL) 1.3 H Estimated GFR (>60 ml/min) 55 L BUN/Creatinine Ratio (7 - 25 %) 20.8 Glucose (65 - 99 mg/dL) 114 H Calcium (8.4 - 10.2 mg/dL) 8.5 Iron (49 - 181 ug/dL) 30 L TIBC (261 - 462 ug/dL) 359 Ferritin (17.9 - 464 ng/mL) 24.5 Total Bilirubin (0.2 - 1.3 mg/dL) 0.2 AST (17 - 59 U/L) 66 H ALT (21 - 72 U/L) 64 Alkaline Phosphatase (< 127 U/L) 292 H Troponin I (<0.11 ng/ml) 0.02 Oeu-N-Dgibsqfyfvk Pept (<125 pg/mL) 336 H Total Protein (6.3 - 8.2 g/dL) 6.6 Albumin (3.5 - 5.0 g/dL) 3.2 L Globulin (1.9 - 4.2 gm/dL) 3.4 Albumin/Globulin Ratio (1.1 - 2.2 %) 0.9 L Vitamin B12 (239 - 931 pg/mL) 964 H Folate (2.76 - 20.0 ng/mL) > 20.0 H Hematology CBC w Diff NO MAN DIFF REQ WBC (4.8 - 10.8 /CUMM) 12.8 H RBC (4.70 - 6.10 /CUMM) 2.13 L Hgb (14.0 - 18.0 G/DL) 5.8 *L Hct (42 - 52 %) 17.9 *L MCV (80.0 - 94.0 FL) 84.0 MCH (27.0 - 31.0 PG) 27.2 MCHC (33.0 - 37.0 G/DL) 32.4 L RDW (11.5 - 14.5 %) 17.2 H Plt Count (130 - 400 /CUMM) 318 MPV (7.4 - 10.4 FL) 7.2 L Gran % (42.2 - 75.2 %) 87.4 H Lymphocytes % (20.5 - 51.1 %) 6.5 L Monocytes % (1.7 - 9.3 %) 5.1 Eosinophils % (0 - 5 %) 0.5 Basophils % (0.0 - 2.0 %) 0.5 Absolute Granulocytes (1.4 - 6.5 /CUMM) 11.2 H Absolute Lymphocytes (1.2 - 3.4 /CUMM) 0.8 L Absolute Monocytes (0.10 - 0.60 /CUMM) 0.7 H Absolute Eosinophils (0.0 - 0.7 /CUMM) 0.1 Absolute Basophils (0.0 - 0.2 /CUMM) 0.1 ESR Westergren (0 - 10 MM) 50 H Imaging Results: Ultrasound demonstrates occlusive femoropopliteal TO DVT on the right and a left popliteal occlusive DVT. Assessment/Plan Assessment/Plan 72-year-old male with bilateral lower extremity DVT most likely related to malignancy 1.) Would recommend anticoagulation at this time 2.) Continue medical/malignancy workup as deemed necessary by the primary team 3.) If testing and biopsies are to be performed here patient will likely benefit from an IVC filter as his anticoagulation will likely need to be held 4.) Will need 3-6 months anticoagulation irrespective of IVC filter due to DVT 5.) Recommend bilateral lower extremity compression with compression stockings once discharged 6.) Will discuss timing of IVC filter with primary team once schedued deemed necessary Consult Acknowledgment - Thank you for your consult request.
[2018-02-21 12:47] LABS: ABSOLUTE BASOPHIL COUNT 0.1 /CUMM (0.0-0.2); ABSOLUTE EOSINOPHIL COUNT 0 /CUMM (0.0-0.7); ABSOLUTE GRANULOCYTE CT 9.9 /CUMM (1.4-6.5); ABSOLUTE LYMPH COUNT 0.9 /CUMM (1.2-3.4); ABSOLUTE MONOCYTE COUNT 0.8 /CUMM (0.10-0.60); BASOPHIL % 0.4 % (0.0-2.0); EOSINOPHIL % 0.3 % (0-5); GRANULOCYTE % 84.8 % (42.2-75.2); MEAN CORPUSCULAR HGB 28.2 PG (27.0-31.0); MEAN CORPUSCULAR VOLUME 85.5 FL (80.0-94.0); MEAN PLATELET VOLUME 8.2 FL (7.4-10.4); PLATELET COUNT 313 /CUMM (130-400); RBC DISTRIBUTION WIDTH 15.4 % (11.5-14.5); RED BLOOD CELL CT 2.98 /CUMM (4.70-6.10); WHITE BLOOD CELL COUNT 11.7 /CUMM (4.8-10.8)
[2018-02-21 13:39] LABS: HEMATOCRIT 25.5 % (42-52)
[2018-02-21 13:40] LABS: PTT 68 SEC (25-37)
[2018-02-21 14:27] VITALS: BP 152/78
--- NOTE | 2018-02-21 14:52 | Event Note ---
Event Note Event Note: 72-year-old gentleman with bilateral DVTs likely to a hypercoagulable state in the setting of metastatic cancer. 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 * Patient will need an upper endoscopy to make a diagnosis of esophageal CA, and to obtain biopsies for histological confirmation. * In addition an EUS will be helpful in assessing the degree of local invasion as per GI. * Will transfer him to [place] on friday for EUS apart from endoscopy. * Patient will get IVC filter placement tomorrow. * patient was notified.
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
[2018-02-21 22:18] VITALS: BP 142/74
[2018-02-21 23:58] LABS: PTT 56 SEC (25-37)
[2018-02-22 06:11] VITALS: BP 138/80
[2018-02-22 07:33] LABS: ABSOLUTE BASOPHIL COUNT 0.1 /CUMM (0.0-0.2); ABSOLUTE EOSINOPHIL COUNT 0.1 /CUMM (0.0-0.7); ABSOLUTE GRANULOCYTE CT 10.5 /CUMM (1.4-6.5); ABSOLUTE LYMPH COUNT 1.1 /CUMM (1.2-3.4); ABSOLUTE MONOCYTE COUNT 0.9 /CUMM (0.10-0.60); BASOPHIL % 0.6 % (0.0-2.0); EOSINOPHIL % 0.6 % (0-5); GRANULOCYTE % 83.5 % (42.2-75.2); HEMATOCRIT 23.5 % (42-52); MEAN CORPUSCULAR HGB 28.7 PG (27.0-31.0); MEAN CORPUSCULAR HGB CONC 33.3 G/DL (33.0-37.0); MEAN PLATELET VOLUME 8.1 FL (7.4-10.4); PLATELET COUNT 323 /CUMM (130-400); RBC DISTRIBUTION WIDTH 15.8 % (11.5-14.5); RED BLOOD CELL CT 2.74 /CUMM (4.70-6.10)
[2018-02-22 07:53] LABS: WHITE BLOOD CELL COUNT 12.5 /CUMM (4.8-10.8)
--- NOTE | 2018-02-22 08:11 | PN- Housestaff ---
Ruben Ferrer 02/22/18 0810: Subjective Follow-up For: Anemia Bilateral LE Occlusive DVT Dysphagia; Suspected mestastatic liver lesions Left sided shoudler pain Tele-Events Since Last Visit: [facility] (116); Patient to OR this morning Subjective: Patient seen and examined at bedside post operation for IVC filter. Patient denies any complaints post-op. The surgical site is clean, dry and intact with dressing applied. He denies any pain in the site. Patient denies chest pain, shortness of breath. Patient now on regular diet. Review of Systems Constitutional: Denies: see HPI. Objective Last 24 Hrs of Vital Signs/I&O Vital Signs Date Time Temp Pulse Resp B/P B/P Pulse O2 O2 Flow FiO2 Mean Ox Delivery Rate 02/22 0611 98.3 90 18 138/80 98 Room Air 02/21 2218 98.2 94 18 142/74 98 Room Air 02/21 1427 98.4 86 18 152/78 98 Room Air Intake & Output 02/22 1600 02/22 0800 02/22 0000 Intake Total 249.6 1184 Output Total 650 Balance -400.4 1184 Intake, IV 249.6 224 Intake, Oral 0 960 Number 1 1 Bowel Movements Output, Urine 650 Patient 154 lb Weight Weight Bed scale Measurement Method Physical Exam General Appearance: Alert, Oriented X3, Cooperative, No Acute Distress Cardiovascular: Regular Rate, Normal S1, Normal S2, No Murmurs Lungs: Clear to Auscultation, Normal Air Movement Abdomen: Normal Bowel Sounds, Soft, No Tenderness Neurological: Normal Speech, Strength at 5/5 X4 Ext, Normal Tone, Sensation Intact Extremities: No Tenderness/Swelling, Surgical site in left lower inguinal region clean, dry and intact. Dressing is applied. Vascular: Normal Pulses, Pulses Symmetrical Current Medications: Current Medications Sig/Kayleen Start time Last Medication Dose Route Stop Time Status Admin Acetaminophen 325 MG Q6P PRN 02/20 2330 AC PO Heparin Sodium 25,000 UNIT Q24H 02/20 2145 AC 02/21 (Porcine) IV 1838 Sodium Chloride 500 ML Lidocaine 1 PAT DAILY@02/21 2100 AC 02/21 EXT 2014 Morphine Sulfate 2 MG Q6-PRN PRN 02/20 2345 AC IV Last 24 Hrs of Lab/Jam Results Last 24 Hrs of Labs/Mics: Laboratory Tests 02/22/18 0648: Anion Gap 6, Estimated GFR > 60, BUN/Creatinine Ratio 16.7, APTT 62 H, CBC w Diff NO MAN DIFF REQ, RBC 2.74 L, MCV 86.0, MCH 28.7, MCHC 33.3, RDW 15.8 H, MPV 8.1, Gran % 83.5 H, Lymphocytes % 8.5 L, Monocytes % 6.8, Eosinophils % 0.6, Basophils % 0.6, Absolute Granulocytes 10.5 H, Absolute Lymphocytes 1.1 L , Absolute Monocytes 0.9 H, Absolute Eosinophils 0.1, Absolute Basophils 0.1 02/21/18 2330: APTT 56 H 02/21/18 1145: APTT 68 H, CBC w Diff MAN DIFF ORDERED, RBC 2.98 L, MCV 85.5, MCH 28.2, MCHC 33.0, RDW 15.4 H, MPV 8.2, Gran % 84.8 H, Lymphocytes % 8.0 L, Monocytes % 6.5, Eosinophils % 0.3, Basophils % 0.4, Absolute Granulocytes 9.9 H, Segmented Neutrophils 78 H, Band Neutrophils 8 H, Absolute Lymphocytes 0.9 L, Lymphocytes 6 L, Monocytes 7, Absolute Monocytes 0.8 H, Absolute Eosinophils 0 , Basophils 1, Absolute Basophils 0.1, Polychromasia 1+, Hypochromic-Microcytic 2+, Poikilocytosis 2+, Anisocytosis 2+ Assessment/Plan Assessment: A/P: Patient is a 72 year old male who originally presented with left shoulder pain, dysphagia, bilateral ankle pain and was admitted to telemtery with anemia and a hemoglobin of 5.3, bilateral DVT and esophageal and liver lesions demosntrated on CT. 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 Bilateral LE DVT: -Patient post op (02/22) for IVC Filter placement through left inguinal region -currently on Heparin IV Dysphagia: -patient discussed with to follow up EGD/EUS with [facility] prior to heading to [place] Regular Diet DVT Prophylaxis: Heparin IV Code Status:DNR/DNI Problem List: 1. DVT, bilateral lower limbs 2. Liver metastases 3. Shoulder pain, left Pain Ratin Pain Location: Left Shoulder Pain Goal: Pain 4 or less Pain Plan: As per pain pathway Tomorrow's Labs & Rationales: CBC - Anticoagulation D'Ross MD,Ella 02/22/18 1126: Attending MD Review Statement Attending Statement Attending MD Statement: examined this patient, discuss w/resident/PA/LOADING SUPERVISOR, agreed w/resident/PA/LOADING SUPERVISOR, discussed with family, reviewed EMR data (avail), discussed with nursing, reviewed images Attending Assessment/Plan: Pt is status post IVC filter. He tolerated the procedure well and is doing okay. This is a 72-year-old male with no past medical history, he hasn't seen a doctor in many years. He came in for left-sided shoulder pain and was found to have multiple liver lesions suggestive of metastases with esophageal thickening likely esophageal CA with metastases. Also bilateral occlusive DVT up to popliteal veins. Appreciate vascular eval and he is on a filter but he needs anticoagulation for the next 3-6 months. I talked to the patient at length. His is visiting his brother here and he lives in [place] he wants to pursue treatment in [place]. We spoke about the best plan of action being for him to be transferred to [place] first thing tomorrow morning to have an endoscopy and an EUS in terms of diagnostic workup. The reason to go to [place] would be that given the high likelihood that this is esophageal CA he'll need an EUS and is suggesting this. I explained to him that the best case scenario is that they would be able to make a diagnosis, switch him to either a long-acting oral anticoagulant or Lovenox parenterally and then he could leave [place] with his diagnosis in hand in a few days to pursue treatment in [place]. He is going to talk to his family and get back to us about the same.
[2018-02-22 08:51] LABS: PTT 62 SEC (25-37)
--- NOTE | 2018-02-22 09:27 | Operative Report ---
Operative/Inv Procedure Report Surgery Date: 02/22/18 Name of Procedure: IVC Filter Placement Pre-Operative Diagnosis: Bilateral DVT Post-Operative Diagnosis: Same Estimated Blood Loss: scant Surgeon/Marketing Program Coordinator: Kevin Chavez MD Anesthesia: local monitored anesthesi Operative/Procedure Note Note: The patient was brought to the operating room and placed on the angiographic table in the supine position and prepped and draped in the usual fashion. A timeout was taken to confirm the patient and procedure. The left groin was anesthetized with 1% lidocaine plain (4cc), and under direct ultrasound visualization the left common femoral vein was accessed with an 18g angiographic introducer needle. A [employer] wire was advanced under fluoroscopy and the filter introducer sheath was advanced. A full venocavagram was obtained showing a patent cava and clearly showing the level of the renal veins. The filter ([employer]) was advanced and deployed just inferior to the renal veins. Completion venogram showed good positioning of the filter. All wires and sheaths were removed and manual pressure applied. The patient tolerated the procedure well, there were no complications, and I was present and scrubbed throughout. CC: Kimmie ADAMS,Migdalia
[2018-02-22 12:21] VITALS: BP 132/68
--- NOTE | 2018-02-22 13:06 | Discharge Summary ---
Visit Information Visit Dates Admission Date: 02/20/18 Discharge Date: 02/23/2018 Hospital Course Course Attending Physician: Migdalia Burks MD Primary Care Physician: Patient Has No Primary Care Dr Hospital Course: This is a 72-year-old male with no past medical history presented to the emergency room for evaluation of left shoulder pain. 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 It was getting more painful with movement. Now after the drive he was more uncomfortable so he decided to come in ER. Vitals: Temperature 98.2, pulse 113, RR 16, blood pressure 155/81, saturating 99 % on room air. CXR: Unremarkable examination. Left shoulder x-ray Mild degenerative changes of the acromioclavicular joint. CT abdomen pelvis with IV contrast: 1. Enlarged liver with numerous lesions suspicious for metastatic disease. 2. Moderate size hiatal hernia with asymmetric wall thickening in the herniated stomach and/or distal esophagus. Neoplasm in this region is not definite but certainly should be considered. 3.Suspected deep vein thrombosis in right common femoral vein. Recommend Doppler ultrasound. 4. Right inguinal hernia containing a loop of nonobstructed small bowel. DVT Doppler bilateral lower extremity: 1. Right lower extremity: Occlusive thrombus from the groin through the popliteal vein. 2. Left lower extremity: Occlusive thrombus in the popliteal vein. problem list + Bilateral occlusive DVT, right femoral through popliteal vein, left popliteal vein + Suspected metastatic lesions in liver + Anemia + Left shoulder pain Bilateral lower extremity DVT: Bilateral lower extremity DVT most likely related to malignancy. Lower extremity venous Doppler showed occlusive thrombus popliteal vein bilateral. Patient was started on IV heparin drip. Vascular surgery was on board. Patient underwent IVC filter placement on 02/22/2018. Patient was continued on IV heparin drip after the procedure. As per vascular surgery recommendation, patient will need 3-6 months of anticoagulation irrespective of IVC filter. Recommended bilateral lower extremity compression stockings. Esophageal thickening with metastases to liver Patient presented with left shoulder pain. 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 Patient will need an upper endoscopy to make a diagnosis of esophageal CA, and to obtain biopsies for histological confirmation. In addition an EUS will be helpful in assessing the degree of local invasion. Patient clearly has widespread disease from the liver lesions. Patient has never had a colonoscopy and in view of the liver metastases it will be reasonable to perform a colonoscopy as well. Recent will be transferred to [facility] for endoscopic ultrasound along with endoscopy. Acute anemia: Recent was found to have acute anemia at the time of admission, normocytic. Hemoglobin 5.8 at the time of admission improved to 8.5 after 3 units of blood transfusion. He has guaiac-positive stools. Acute blood loss anemia most likely from GI source given his esophageal malignancy with liver metastases. Linen Clerk on board recommended EGD, EUS, colonoscopy. Left shoulder pain: X-ray showed degenerative changes. Patient was given pain medications tylinol for shoulder pain ANGELA: Creatinine elevated to 1.3 on admission Improved to 1.0 after fluids Hypertension: SBP 140s-150s Not on any medications NPO for endoscopy DVT ppx-on heparin gtt DNR/DNI Allergies: Coded Allergies: No Known Allergies (02/20/18) Disposition Summary Disposition Principal Diagnosis: Bilateral lower extremity DVT Liver metastasis Posterior esophageal wall thickening concerning for esophageal mass Acute blood loss anemia Acute kidney injury Additional Diagnosis: As above Discharge Disposition: other general hospital Discharge Instructions General Discharge Information Code Status: Do Not Resucitate/Intubat Patient's Diet: As tolerated Patient's Activity: as Tolerated Follow-Up Instructions/Appts: follow-up with PCP in one week after discharge Follow-up with hull drafter in 1 week after discharge Follow-up with vascular surgeon in one week after discharge Medications at Discharge Discharge Medications: Start taking the following new medications: Lidocaine (Lidoderm) 5 % ADH..PATCH 1 Patch ON SKIN DAILY Qty = 30 No Refills Diclofenac Sodium (Voltaren) 1 % GEL..GRAM. 1 Application On the skin 4 TIMES A DAY as needed for SHOULDER PAIN Qty = 1 No Refills Melatonin (Melatonin) 5 MG TABLET 5 Milligram ORAL AT BEDTIME as needed for INSOMINA Qty = 30 No Refills Copies To: Vesna ADAMS,Vesna
--- NOTE | 2018-02-22 13:21 | Patient Discharge Instructions ---
Discharge Instructions General Discharge Information You were seen/treated for: + Bilateral occlusive DVT, right femoral through popliteal vein, left popliteal vein + Suspected metastatic lesions in liver + Anemia + Left shoulder pain Special Instructions: follow-up with PCP in one week after discharge Follow-up with rn bariatric in 1 week after discharge Follow-up with vascular surgeon in one week after discharge nEEDS TO BE ON ANTICOAGULATION FOR 3- 6 MONTHS ATLEAST Diet Continue normal diet: Yes Activity Full Activity/No Limits: Yes Acute Coronary Syndrome Inclusion Criteria At DC or during hospital stay patient has or had the following: ACS DIAGNOSIS No Discharge Core Measures Meds if any: Prescribed or Continued at Discharge Meds if any: NOT Prescribed or Continued at Discharge Congestive Heart Failure Inclusion Criteria At DC or during hospital stay patient has or had the following: CHF DIAGNOSIS No Discharge Core Measures Meds if any: Prescribed or Continued at Discharge Meds if any: NOT Prescribed or Continued at Discharge Cerebrovascular accident Inclusion Criteria At DC or during hospital stay patient has or had the following: CVA/TIA Diagnosis No Discharge Core Measures Meds if any: Prescribed or Continued at Discharge Meds if any: NOT Prescribed or Continued at Discharge Venous thromboembolism Inclusion Criteria VTE Diagnosis Yes VTE Type Deep Venous Thrombosis VTE Confirmed by (Test) EXT BILATERAL VENOUS DOPP Discharge Core Measures - Per Current guidelines, there needs to be overlap - treatment for the first 5 days of Warfarin therapy. - If discharged on Warfarin prior to 5 days of - overlap therapy, the patient will need to be - assessed for post discharge needs including - *Post discharge parental anticoagulation - *Warfarin and/or parental anticoagulation education - *Follow up date to check INR post discharge At least 5 days overlap therapy as Inpatient Yes Meds if any: Prescribed or Continued at Discharge Note: Overlap Therapy is Warfarin and Anticoagulant Meds if any: NOT Prescribed or Continued at Discharge
[2018-02-22] MEDS ORDERED: LIDODERM1 EACH EXT (13:22)
--- NOTE | 2018-02-22 13:54 | RADIOLOGY REPORT ---
EXAMINATION: XR ABDOMEN CLINICAL INDICATION: Intraoperative fluoroscopy was provided during inferior venacavogram and inferior vena cava filter placement. COMPARISON: None TECHNIQUE: 2 fluoroscopic venograms are provided for evaluation from the operating room. Fluoroscopy time was 1.3 minutes. FINDINGS: The first venogram demonstrates inferior vena cava with the measuring catheter. The renal veins a localized. The iliac veins are not refluxed. The second venogram demonstrates a Cook select filter in the infrarenal inferior vena cava. IMPRESSION: 1. Inferior vena cavogram during placement of an inferior vena cava filter.
[2018-02-22 14:55] VITALS: BP 140/82
--- NOTE | 2018-02-22 17:13 | PN- Vascular Surgery ---
Subjective Subjective: Pt is comfortable, denies pain. No nausea, tolerating diet Voiding. Denies Cp/SOB Objective Vital Signs and I&Os Vital Signs Date Time Temp Pulse Resp B/P B/P Pulse O2 O2 Flow FiO2 Mean Ox Delivery Rate 02/22 1455 98.0 100 18 140/82 96 Room Air 02/22 1221 108 20 132/68 97 Room Air 02/22 0611 98.3 90 18 138/80 98 Room Air 02/21 2218 98.2 94 18 142/74 98 Room Air Intake & Output 02/22 1600 02/22 0800 02/22 0000 02/21 1600 02/21 0800 02/21 0000 Intake Total 876 249.6 1184 817 212 Output Total 650 400 Balance 876 -400.4 1184 817 -188 Intake, Blood 350 Product Intake, IV 156 249.6 224 227 192 Intake, Oral 720 0 960 240 20 Number 1 1 0 Bowel Movements Output, Urine 650 400 Patient 154 lb 156 lb 150 lb Weight Weight Bed scale Bed scale Measurement Method Physical Exam: gen- NAD resp-clear abd-soft,NT groin wound dressing clean and dry, no erythema or swelling. no signs of hematoma Current Medications: Current Medications Sig/Kayleen Start time Last Medication Dose Route Stop Time Status Admin Acetaminophen 325 MG Q6P PRN 02/20 2330 AC PO Fentanyl Citrate 100 MCG .STK-MED ONE 02/22 0748 FL IM 02/22 0749 Heparin Sodium 25,000 UNIT Q24H 02/20 2145 AC 02/21 (Porcine) IV 1838 Sodium Chloride 500 ML Lidocaine 1 PAT DAILY@2100 02/21 2100 AC 02/21 EXT 2014 Midazolam HCl 2 MG .STK-MED ONE 02/22 0749 FL IM 02/22 0750 Morphine Sulfate 2 MG Q6-PRN PRN 02/20 2345 AC IV Results Last 48 Hours of Labs: Laboratory Tests 02/22 02/22 02/21 1700 0648 2330 Chemistry Sodium (137 - 145 mmol/L) 139 Potassium (3.5 - 5.1 mmol/L) 4.4 Chloride (98 - 107 mmol/L) 103 Carbon Dioxide (22 - 30 mmol/L) 30 Anion Gap (5 - 16) 6 BUN (9 - 20 mg/dL) 15 Creatinine (0.7 - 1.2 mg/dL) 0.9 Estimated GFR (>60 ml/min) > 60 BUN/Creatinine Ratio (7 - 25 %) 16.7 Coagulation APTT (25 - 37 SEC) Pending 62 H 56 H Hematology CBC w Diff NO MAN DIFF REQ WBC (4.8 - 10.8 /CUMM) 12.5 H RBC (4.70 - 6.10 /CUMM) 2.74 L Hgb (14.0 - 18.0 G/DL) 7.9 L Hct (42 - 52 %) 23.5 L MCV (80.0 - 94.0 FL) 86.0 MCH (27.0 - 31.0 PG) 28.7 MCHC (33.0 - 37.0 G/DL) 33.3 RDW (11.5 - 14.5 %) 15.8 H Plt Count (130 - 400 /CUMM) 323 MPV (7.4 - 10.4 FL) 8.1 Gran % (42.2 - 75.2 %) 83.5 H Lymphocytes % (20.5 - 51.1 %) 8.5 L Monocytes % (1.7 - 9.3 %) 6.8 Eosinophils % (0 - 5 %) 0.6 Basophils % (0.0 - 2.0 %) 0.6 Absolute Granulocytes (1.4 - 6.5 /CUMM) 10.5 H Absolute Lymphocytes (1.2 - 3.4 /CUMM) 1.1 L Absolute Monocytes (0.10 - 0.60 /CUMM) 0.9 H Absolute Eosinophils (0.0 - 0.7 /CUMM) 0.1 Absolute Basophils (0.0 - 0.2 /CUMM) 0.1 02/21 02/21 1145 0405 Chemistry Sodium (137 - 145 mmol/L) 138 Potassium (3.5 - 5.1 mmol/L) 4.6 Chloride (98 - 107 mmol/L) 104 Carbon Dioxide (22 - 30 mmol/L) 30 Anion Gap (5 - 16) 3 L BUN (9 - 20 mg/dL) 21 H Creatinine (0.7 - 1.2 mg/dL) 1.0 Estimated GFR (>60 ml/min) > 60 BUN/Creatinine Ratio (7 - 25 %) 21.0 Total Bilirubin (0.2 - 1.3 mg/dL) 0.9 Direct Bilirubin (< 0.4 mg/dL) 0 AST (17 - 59 U/L) 56 ALT (21 - 72 U/L) 60 Alkaline Phosphatase (< 127 U/L) 285 H Total Protein (6.3 - 8.2 g/dL) 6.0 L Albumin (3.5 - 5.0 g/dL) 2.8 L Coagulation APTT (25 - 37 SEC) 68 H 53 H Hematology CBC w Diff MAN DIFF ORDERED NO MAN DIFF REQ WBC (4.8 - 10.8 /CUMM) 11.7 H 11.3 H RBC (4.70 - 6.10 /CUMM) 2.98 L 2.42 L Hgb (14.0 - 18.0 G/DL) 8.4 L 6.8 *L Hct (42 - 52 %) 25.5 L 20.5 L MCV (80.0 - 94.0 FL) 85.5 84.7 MCH (27.0 - 31.0 PG) 28.2 28.2 MCHC (33.0 - 37.0 G/DL) 33.0 33.3 RDW (11.5 - 14.5 %) 15.4 H 16.2 H Plt Count (130 - 400 /CUMM) 313 281 MPV (7.4 - 10.4 FL) 8.2 8.3 Gran % (42.2 - 75.2 %) 84.8 H 82.5 H Lymphocytes % (20.5 - 51.1 %) 8.0 L 9.6 L Monocytes % (1.7 - 9.3 %) 6.5 6.5 Eosinophils % (0 - 5 %) 0.3 0.7 Basophils % (0.0 - 2.0 %) 0.4 0.7 Absolute Granulocytes (1.4 - 6.5 /CUMM) 9.9 H 9.3 H Segmented Neutrophils (42.2 - 75.2 %) 78 H Band Neutrophils (0.0 - 5.0 %) 8 H Absolute Lymphocytes (1.2 - 3.4 /CUMM) 0.9 L 1.1 L Lymphocytes (20.5 - 51.1 %) 6 L Monocytes (1.7 - 9.3 %) 7 Absolute Monocytes (0.10 - 0.60 /CUMM) 0.8 H 0.7 H Absolute Eosinophils (0.0 - 0.7 /CUMM) 0 0.1 Basophils (0.0 - 2.0 %) 1 Absolute Basophils (0.0 - 0.2 /CUMM) 0.1 0.1 Polychromasia 1+ Hypochromic-Microcytic 2+ Poikilocytosis 2+ Anisocytosis 2+ Retic Count (0.5 - 2.0 %) 3.05 H 02/20 02/20 2223 1735 Coagulation PT (9.4 - 12.5 SEC) 13.5 H INR (0.90 - 1.17) 1.24 H APTT (25 - 37 SEC) Cancelled 26 Assessment/Plan Assessment/Plan 72yo M here with anemia, transfused 3 units prbcs, bilateral DVTs and esophageal and liver lesions demosntrated on CT. Pt is SP IVC filter POD0, stable Rec anticoagulation- xarelto is ok, medical team to decide Rec compression socks OK to ambulate now reg diet ok rec clean dry dressing change POD2 Pt will need vascular surgery follow-up when he gets home Core Measures Venous Thromboembolism VTE Risk Factors Acute Medical Illness No Mechanical VTE Prophylaxis d/t Other (b/l DVT) No VTE Pharm Prophylaxis d/t Other (heparin drip)
[2018-02-22 17:56] LABS: PTT 44 SEC (25-37)
[2018-02-22 22:24] VITALS: BP 122/78
[2018-02-23 00:54] LABS: PTT 90 SEC (25-37)
[2018-02-23 06:28] VITALS: BP 130/78
[2018-02-23 07:27] LABS: ABSOLUTE BASOPHIL COUNT 0 /CUMM (0.0-0.2); ABSOLUTE EOSINOPHIL COUNT 0.1 /CUMM (0.0-0.7); ABSOLUTE GRANULOCYTE CT 8.8 /CUMM (1.4-6.5); ABSOLUTE MONOCYTE COUNT 0.7 /CUMM (0.10-0.60); BASOPHIL % 0.2 % (0.0-2.0); EOSINOPHIL % 1.2 % (0-5); GRANULOCYTE % 82.8 % (42.2-75.2); MEAN CORPUSCULAR HGB 28.7 PG (27.0-31.0); MEAN CORPUSCULAR HGB CONC 33.2 G/DL (33.0-37.0); MEAN CORPUSCULAR VOLUME 86.4 FL (80.0-94.0); MEAN PLATELET VOLUME 8.6 FL (7.4-10.4); PLATELET COUNT 328 /CUMM (130-400); RBC DISTRIBUTION WIDTH 16.3 % (11.5-14.5); WHITE BLOOD CELL COUNT 10.7 /CUMM (4.8-10.8)
[2018-02-23 07:58] LABS: HEMATOCRIT 21.6 % (42-52)
[2018-02-23 10:30] VITALS: BP 150/70
--- NOTE | 2018-02-23 11:04 | PN- Housestaff ---
Ruben Ferrer 02/23/18 1104: Subjective Follow-up For: Anemia Bilateral LE Occlusive DVT Dysphagia; Suspected metastatic liver lesions Left Sided Shoulder Pain Subjective: Patient seen and examined at bedside this morning. He is status post IVC filter Day 1 today. Patients surgical site is clean, dry and intact. Patient continues to have left shoudler pain, 6/10 that is dull and nonradiating in nature. He claims the lidocaine patch helps very little. Patient agreed to try voltaren gel for epain. Patient had no other overnight events and denies any chest pain, shortness of breath. Patient tolerating regular diet today. He is scheduled for transfer to [place] for EGD/EUS. Patient has been educated by the vascular team on compression socks and the need for anticoagulation for 3-6 months after discharge. Review of Systems Constitutional: Denies: see HPI. Objective Last 24 Hrs of Vital Signs/I&O Vital Signs Date Time Temp Pulse Resp B/P B/P Pulse O2 O2 Flow FiO2 Mean Ox Delivery Rate 02/23 1419 98.4 100 18 148/88 96 Room Air 02/23 1030 98.3 96 18 150/70 96 Room Air 02/23 0628 98.7 102 18 130/78 96 Room Air 02/22 2224 98.4 105 16 122/78 97 Room Air 02/22 1455 98.0 100 18 140/82 96 Room Air Intake & Output 02/23 1600 /02 0800 07/ 0000 Intake Total 650.4 250 668 Output Total 300 350 Balance 350.4 250 318 Intake, IV 290.4 250 108 Intake, Oral 360 560 Number 1 Bowel Movements Output, Urine 300 350 Patient 154 lb Weight Physical Exam General Appearance: Alert, Oriented X3, Cooperative, No Acute Distress Skin: No Rashes, No Breakdown, No Significant Lesion HEENT: Atraumatic, PERRLA, EOMI Cardiovascular: Regular Rate, Normal S1, Normal S2, No Murmurs Lungs: Clear to Auscultation, Normal Air Movement Abdomen: Normal Bowel Sounds, Soft, No Tenderness Neurological: Normal Gait, Normal Speech, Strength at 5/5 X4 Ext, Normal Tone, Sensation Intact, Cranial Nerves 3-12 NL Extremities: No Clubbing, No Cyanosis, No Edema, Normal Pulses, Left sided shoulder pain Vascular: Surgical site is clean, dry and intact Assessment/Plan Assessment: A/P Patient is a 72 year old male who originally presented with left shoulder pain, dysphagia, bilateral ankle pain and was admitted to telemtery with anemia and a hemoglobin of 5.3, bilateral DVT and esophageal and liver lesions demosntrated on CT. 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 Pt being transferred to [place] for EUS and EGD due to recent finidngs of metastatic lesions in liver and thickening of the stomach/ esophagus. BILATERAL LE/DVT: -patient post op IVC filter day 1 (02/22) through left inguinal region -patient followed by vascular surgery and advised for proper anticoagulation for 3-6 months after discharge -advised to follow-up with vascular surgery when he gets home DYSPHAGIA -patient to have EGD/EUS at [place] today Regular Diet DVT Prophylaxis: Compression Socks; Ambulation; Patient off heparin for EGD/EUS today Code Status: DNR/DNI Problem List: 1. DVT, bilateral lower limbs 2. Anemia 3. Liver metastases 4. Shoulder pain, left 5. CKD (chronic kidney disease) Pain Ratin Pain Location: Left Shoulder Pain Goal: Pain 4 or less Pain Plan: Lidocaine Patch Volteran Gel Tomorrow's Labs & Rationales: Patient for EGD/EUS today APTT today 93 DVT/Prophylaxis: early ambulation low risk, Patient has compression socks and ambulating Discharge Plan Discharge Disposition: transfer to another hosp ([place] for EGD/EUS) Stable for Discharge? Yes Anticipated Discharge (Day): today If Discharged Today/In 24 Hrs: W-10/discharge paper done, DC summary done, CMR done Tamara Peterson 02/23/18 1106: Attending MD Review Statement Attending Statement Attending MD Statement: examined this patient, discuss w/resident/PA/HEATING AND VENTILATING DRAFTER, agreed w/resident/PA/HEATING AND VENTILATING DRAFTER, reviewed EMR data (avail), discussed with nursing, discussed with case mgmt Attending Assessment/Plan: Pt being transferred to [place] for EUS and EGD due to recent finidngs of metastatic lesions in liver and thickening of the stomach/ esophagus. b/l DVT- on anitcoagulation. s/p IVC filter placement. d/w pt the care plan.
[2018-02-23] MEDS ORDERED: MELATONIN5 M7 PO (11:17)
[2018-02-23] MEDS ORDERED: VOLTAREN100 GM TOP (11:17)
[2018-02-23 13:48] LABS: PTT 93 SEC (25-37)
[2018-02-23] MEDS ORDERED: HEPARIN-NS25000 UNIT IV (14:16)
[2018-02-23 14:19] VITALS: BP 148/88
[2018-02-23] MEDS ORDERED: HEPARIN-1/25000 UNI1 IV (14:21)
--- NOTE | 2018-02-24 15:28 | ECHOCARDIOGRAM REPORT ---
MANINDER GRIFFIN Age: 72 : 1945 Gender: M Exam Date: 02/21/2018 09:18 Exam Location: [facility] [address] Ht (in): 67 Wt (lb): 156 BSA: 1.84 BP: 144 / 78 Ordering Physician: Artemio Ashley MD Referring Physician: Artemio Ashley MD Technologist: Gabriela Appiah [facility] Room Number: 185-02 Indications: Rhythm: Sinus Technical Quality: good FINDINGS Left Ventricle Normal left ventricular size, wall thickness and systolic function with no obvious regional wall motion abnormalities. Normal left ventricular diastolic filling pattern for age. The ejection fraction is visually estimated at 65 %. Right Ventricle The right ventricle is normal in size and function. Right Atrium The right atrium is normal in size. Left Atrium The left atrium midly dilated. The interatrial septum is intact. Mitral Valve The mitral valve is normal in structure and function. There is no mitral regurgitation. Aortic Valve Mild aortic valve sclerosis involving the annulus and thickening of the leaflefts, without significant gradiant. There is no aortic regurgitation. Tricuspid Valve The tricuspid valve is normal in structure and function. There is mild tricuspid regurgitation. Pulmonary artery systolic pressure is mildly elevated, estimated at 30 mmHg Pulmonic Valve Structurally normal pulmonic valve. There is trace pulmonic regurgitation. Pericardium Normal pericardium without effusion. No pleural effusion. Great Vessels Normal aortic root dimension. The aortic arch and great vessels are well seen and are normal. CONCLUSIONS Normal left ventricular size, wall thickness and systolic function with no obvious regional wall motion abnormalities. Normal left ventricular diastolic filling pattern for age. The ejection fraction is visually estimated at 65 %. The right ventricle is normal in size and function. The left atrium midly dilated. The interatrial septum is intact. Mild aortic valve sclerosis involving the annulus and thickening of the leaflefts, without significant gradiant. There is no aortic regurgitation. There is mild tricuspid regurgitation. Pulmonary artery systolic pressure is mildly elevated, estimated at 30 mmHg. There is trace pulmonic regurgitation. Normal pericardium without effusion. Normal aortic root dimension. Javier Leone M.D. (Electronically Signed) Final Date: 22 February 2018 13:35 Amended: 23 February 2018 09:51 MEASUREMENTS (Male / Female) Normal Values 2D ECHO LV Diastolic Diameter PLAX 3.8 cm 4.2 - 5.9 / 3.9 - 5.3 cm LV Systolic Diameter PLAX 2.4 cm 2.1 - 4.0 cm LV Fractional Shortening PLAX 36.8 % 25 - 46 % LV Ejection Fraction 2D Teich 67.5 % IVS Diastolic Thickness 1.2 cm LVPW Diastolic Thickness 1.5 cm LV Relative Wall Thickness 0.7 LVOT Diameter 2.3 cm Aortic Root Diameter 3.3 cm LA Systolic Diameter LX 2.7 cm 3.0 - 4.0 / 2.7 - 3.8 cm LV Ejection Fraction MOD BP 70.6 % >= 55 % LV Diastolic Length 4C 8.2 cm 6.9 - 10.3 cm LV Diastolic Area 4C 30.0 cm LV Diastolic Volume MOD 4C 91.0 cm LV Ejection Fraction MOD 4C 73.6 % LV Stroke Volume MOD 4C 67.0 cm LV Systolic Length 4C 6.0 cm LV Systolic Area 4C 13.1 cm LV Systolic Volume MOD 4C 24.0 cm LV Ejection Fraction MOD 2C 70.0 % LV Diastolic Volume 4C AL 93.8 cm 85 - 139 / 69 - 109 cm LV Systolic Volume 4C AL 24.3 cm LV Ejection Fraction 4C AL 74.1 % LV Stroke Volume 4C AL 69.4 cm LV Ejection Fraction 2C AL 71.6 % LA Volume 82.0 cm 18 - 58 / 22 - 52 cm DOPPLER AV Peak Velocity 160.0 cm/s AV Peak Gradient 10.2 mmHg LVOT Peak Velocity 116.0 cm/s LVOT Peak Gradient 5.4 mmHg AV Area Cont Eq pk 3.0 cm Mitral E Point Velocity 82.4 cm/s Mitral A Point Velocity 121.0 cm/s Mitral E to A Ratio 0.7 MV Deceleration Time 215.0 ms TR Peak Velocity 274.0 cm/s TR Peak Gradient 30.0 mmHg PV Peak Velocity 121.0 cm/s PV Peak Gradient 5.9 mmHg LV E' Lateral Velocity 10.9 cm/s Mitral E to LV E' Lateral Ratio 7.6 LV E' Septal Velocity 8.5 cm/s Mitral E to LV E' Septal Ratio 9.7
== END 2018-02-23 14:54 | disposition short-term general hospital (02) | DRG 253 ==
LOC: ERH 16:37 → ERHI 22:26 → 1NO 22:26 → ENRESERV 23:42 → 1NO 02-21 00:02 → ENPENDDIS 02-23 09:20 → 1NO 02-23 14:54
PROVIDERS: Emergency Medicine; Internal Medicine; Physical Medicine & Rehabilitation Pain Medicine; Physician Assistant; Physician Assistant Medical; Preventive Medicine Public Health & General Preventive Medicine; Student in an Organized Health Care Education/Training Program
PROC: 30233N1 Transfusion of Nonautologous Red Blood Cells into Peripheral Vein, Percutaneous Approach (ICD-10-PCS; 2018-02-20)
PROC: 06H03DZ Insertion of Intraluminal Device into Inferior Vena Cava, Percutaneous Approach (ICD-10-PCS; principal; 2018-02-22)
DX: I82.433 Acute embolism and thrombosis of popliteal vein, bilateral (principal); C78.7 Secondary malignant neoplasm of liver and intrahepatic bile duct; D62 Acute posthemorrhagic anemia; N17.9 Acute kidney failure, unspecified; I82.411 Acute embolism and thrombosis of right femoral vein; Z66 Do not resuscitate; K22.9 Disease of esophagus, unspecified; C80.1 Malignant (primary) neoplasm, unspecified; M19.012 Primary osteoarthritis, left shoulder; R13.10 Dysphagia, unspecified; K40.90 Unilateral inguinal hernia, without obstruction or gangrene, not specified as recurrent
CPT/HCPCS: 1NSP; ERO; 36415; 36592; 71046; 73030-LT; 74018; 74177; 82436; 86920; 93005; 93010; 93306; 93970; C1725; J1644; J2001; P9016; Q9967